=== PATIENT | male | born 1970 | race Caucasian/White ===

== ENCOUNTER 2022-05-16 16:11 | Emergency (ER) | payer BC ==
[~2022-05-16] VITALS: Ht 170.2 cm; Wt 84.0 kg
[2022-05-16 16:23] VITALS: BP 144/99
[2022-05-16] MEDS ORDERED: CETI10TA6 PO (17:50)
[2022-05-16] MEDS ORDERED: P20 PO (17:50)
[2022-05-16] MEDS ORDERED: FLUT9.9S BOTHNSTRLS (17:50)
[2022-05-16] MEDS ORDERED: NAPR-681 PO (17:50)
== END 2022-05-16 18:26 | disposition home or self-care (01) ==
LOC: ER 16:11
DX: H69.80 Other specified disorders of Eustachian tube, unspecified ear (principal)
CPT/HCPCS: 99283